=== PATIENT | female | born 1990 ===

== ENCOUNTER 2017-06-28 13:48 | Emergency (ER) | payer SELFPAY ==
--- NOTE | 2017-06-28 13:53 | ER Report ---
History and Physical Time Seen By MD: 13:52 (CHICHO JEREZ MD) HPI/ROS CHIEF COMPLAINT: Nausea vomiting and diarrhea HISTORY OF PRESENT ILLNESS: Patient is a 27-year-old female with past medical history significant for bronchitis. Patient is had 3-4 days of watery diarrhea last episode was yesterday but she is also having dry heaves and vomiting. Patient also admits to sort of crampy epigastric abdominal pain. Any type of oral intake seems to initiate around of emesis. He shouldn't lives in [facility] and is a solid waste truck driver. Because the symptoms have been progressing for the past 3-4 days she presents to the emergency department for evaluation. Patient last diarrhea was yesterday she did take Imodium at that time. Patient denies any recent antibiotic use or travel out of the country. REVIEW OF SYSTEMS: Constitutional: No fever, no chills. Eyes: No discharge. ENT: No sore throat. Cardiovascular: No chest pain, no palpitations. Respiratory: No cough, no shortness of breath. Gastrointestinal: Abdominal cramping, nausea vomiting and diarrhea. Genitourinary: No hematuria. Musculoskeletal: No back pain. Skin: No rashes. Neurological: No headache. (CHICHO JEREZ MD) Allergies: Coded Allergies: No Known Drug Allergies (Unverified , 06/28/17) Home Meds Active Scripts Dicyclomine Hcl (DICYCLOMINE HCL) 20 Mg Tablet, 20 MG PO QID for diarrhea, #20 TAB 0 Refills Prov:CHICHO JEREZ MD 06/28/17 Ondansetron (ZOFRAN ODT) 4 Mg Tab.rapdis, 4 MG PO Q8H Y for NAUSEA, #20 TAB.EDISON 0 Refills Prov:CHICHO JEREZ MD 06/28/17 Reported Medications Albuterol Sulfate (PROVENTIL HFA) 6.7 Gm Inh, 1-2 PUFF INH 3-4XD, INH 06/28/17 Albuterol Sulfate 90 Mcg/Act (PROAIR HFA 90 MCG/ACT) 8.5 Gm Hfa.aer.ad, 1-2 PUFF IH 3-4XD, INHALER 06/28/17 Past Medical/Surgical History Bronchitis (CHICHO JEREZ MD) Constitutional Vital Sign - Last 24 Hours 3/06/28/17 06/28/17 06/28/17 13:48 13:54 13:58 14:00 Temp 97.9 Pulse ??? 89 Resp 14 B/P (MAP) 124/72 124/72 (89) 119/74 (89) Pulse Ox 92 06/28/17 06/28/17 06/28/17 06/28/17 14:03 14:18 14:30 14:33 Pulse 88 79 76 B/P (MAP) ???/??? (1665) Pulse Ox 94 95 93 06/28/17 06/28/17 06/28/17 06/28/17 14:48 15:03 15:18 15:23 Pulse 81 77 71 ??? Pulse Ox 94 94 93 06/28/17 06/28/17 06/28/17 06/28/17 15:30 15:38 15:50 15:53 Pulse 94 85 B/P (MAP) ???/??? (1665) 126/65 (85) Pulse Ox 94 91 06/28/17 06/28/17 06/28/17 06/28/17 16:00 16:08 16:18 16:23 Pulse ??? 76 B/P (MAP) ???/??? (1665) 103/57 (72) Pulse Ox 90 06/28/17 06/28/17 16:30 16:38 Pulse 72 B/P (MAP) 95/61 (72) Pulse Ox 93 Intake and Output 06/28/17 06/28/17 06/29/17 15:00 23:00 07:00 Intake Total 50 ml Balance 50 ml (LAURORA,BRITTANY V DO) Physical Exam General Appearance: The patient is alert, has no immediate need for airway protection and no signs of toxicity. Eyes: Pupils equal and round no pallor or injection. ENT, Mouth: Mucous membranes are moist. Respiratory: There are no retractions, lungs are clear to auscultation. Cardiovascular: Regular rate and rhythm. Gastrointestinal: Abdomen is soft and non tender, no masses, bowel sounds normal. Neurological: Awake and alert Skin: Warm and dry, no rashes. Musculoskeletal: Neck is supple non tender. Extremities are nontender, nonswollen and have full range of motion. (CHICHO JEREZ MD) Medical Decision Making Data Points Result Diagram: 06/28/17 1406 06/28/17 1406 Laboratory Hematology Test 06/28/17 13:55 06/28/17 14:06 Urine Color Yellow Urine Clarity Clear Urine pH 8.0 pH (4.8-9.5) Urine Specific [place] 1.017 Urine Protein Negative mg/dL (NEGATIVE) Urine Glucose (UA) Negative mg/dL (NEGATIVE) Urine Ketones Negative mg/dL (NEGATIVE) Urine Blood Small (NEGATIVE) Urine Nitrite Negative (NEGATIVE) Urine Bilirubin Negative (NEGATIVE) Urine Urobilinogen Negative mg/dL (0.2-1.9) Urine Leukocyte Esterase Negative (NEGATIVE) Urine RBC <1 /HPF (0-2/HPF) Urine WBC 2 /HPF (0-5/HPF) Urine Squamous Epithelial Cells Many /LPF (</=FEW) Urine Bacteria Negative /HPF (NONE-FEW) Urine Mucus Few /HPF (NONE-FEW) Red Blood Count 4.95 M/uL (4.17-5.56) Mean Corpuscular Volume 82.9 fL (80.0-96.0) Mean Corpuscular Hemoglobin 28.4 pg (26.0-33.0) Mean Corpuscular Hemoglobin Concent 34.3 g/dL (32.0-36.0) Red Cell Distribution Width 14.4 % (11.5-14.5) Mean Platelet Volume 7.9 fL (7.2-11.1) Neutrophils (%) (Auto) 59.2 % (39.4-72.5) Lymphocytes (%) (Auto) 28.2 % (17.6-49.6) Monocytes (%) (Auto) 8.0 % (4.1-12.4) Eosinophils (%) (Auto) 3.5 % (0.4-6.7) Basophils (%) (Auto) 1.1 % (0.3-1.4) Nucleated RBC Relative Count (auto) 0.0 /100WBC Neutrophils # (Auto) 4.8 K/uL (2.0-7.4) Lymphocytes # (Auto) 2.3 K/uL (1.3-3.6) Monocytes # (Auto) 0.6 K/uL (0.3-1.0) Eosinophils # (Auto) 0.3 K/uL (0.0-0.5) Basophils # (Auto) 0.1 K/uL (0.0-0.1) Nucleated RBC Absolute Count (auto) 0.00 K/uL Peripheral Blood Smear No Y/N Urine HCG, Qualitative Negative (NEGATIVE) Sodium Level 140 mmol/L (137-145) Potassium Level 3.7 mmol/L (3.5-5.0) Chloride Level 103 mmol/L (98-107) Carbon Dioxide Level 25 mmol/L (22-31) Blood Urea Nitrogen 7 mg/dl (7-18) Creatinine 0.80 mg/dl (0.52-1.04) Glomerular Filtration Rate Calc > 60.0 Random Glucose 93 mg/dl (75-110) Calcium Level 9.2 mg/dl (8.4-10.2) Total Bilirubin 0.4 mg/dl (0.2-1.3) Aspartate Amino Transf (AST/SGOT) 29 U/L (0-35) Alanine Aminotransferase (ALT/SGPT) 47 U/L (0-56) Alkaline Phosphatase 85 U/L (0-126) Troponin I < 0.012 ng/ml Total Protein 7.4 gm/dl (6.3-8.2) Albumin 3.8 g/dl (3.5-5.0) Amylase Level 75 U/L (0-110) Lipase 116 U/L (23-300) Chemistry Test 06/28/17 13:55 06/28/17 14:06 Urine Color Yellow Urine Clarity Clear Urine pH 8.0 pH (4.8-9.5) Urine Specific [place] 1.017 Urine Protein Negative mg/dL (NEGATIVE) Urine Glucose (UA) Negative mg/dL (NEGATIVE) Urine Ketones Negative mg/dL (NEGATIVE) Urine Blood Small (NEGATIVE) Urine Nitrite Negative (NEGATIVE) Urine Bilirubin Negative (NEGATIVE) Urine Urobilinogen Negative mg/dL (0.2-1.9) Urine Leukocyte Esterase Negative (NEGATIVE) Urine RBC <1 /HPF (0-2/HPF) Urine WBC 2 /HPF (0-5/HPF) Urine Squamous Epithelial Cells Many /LPF (</=FEW) Urine Bacteria Negative /HPF (NONE-FEW) Urine Mucus Few /HPF (NONE-FEW) White Blood Count 8.1 k/uL (4.5-11.0) Red Blood Count 4.95 M/uL (4.17-5.56) Hemoglobin 14.1 g/dL (12.0-16.0) Hematocrit 41.1 % (34.0-47.0) Mean Corpuscular Volume 82.9 fL (80.0-96.0) Mean Corpuscular Hemoglobin 28.4 pg (26.0-33.0) Mean Corpuscular Hemoglobin Concent 34.3 g/dL (32.0-36.0) Red Cell Distribution Width 14.4 % (11.5-14.5) Platelet Count 272 K/uL (150-450) Mean Platelet Volume 7.9 fL (7.2-11.1) Neutrophils (%) (Auto) 59.2 % (39.4-72.5) Lymphocytes (%) (Auto) 28.2 % (17.6-49.6) Monocytes (%) (Auto) 8.0 % (4.1-12.4) Eosinophils (%) (Auto) 3.5 % (0.4-6.7) Basophils (%) (Auto) 1.1 % (0.3-1.4) Nucleated RBC Relative Count (auto) 0.0 /100WBC Neutrophils # (Auto) 4.8 K/uL (2.0-7.4) Lymphocytes # (Auto) 2.3 K/uL (1.3-3.6) Monocytes # (Auto) 0.6 K/uL (0.3-1.0) Eosinophils # (Auto) 0.3 K/uL (0.0-0.5) Basophils # (Auto) 0.1 K/uL (0.0-0.1) Nucleated RBC Absolute Count (auto) 0.00 K/uL Peripheral Blood Smear No Y/N Urine HCG, Qualitative Negative (NEGATIVE) Glomerular Filtration Rate Calc > 60.0 Calcium Level 9.2 mg/dl (8.4-10.2) Total Bilirubin 0.4 mg/dl (0.2-1.3) Aspartate Amino Transf (AST/SGOT) 29 U/L (0-35) Alanine Aminotransferase (ALT/SGPT) 47 U/L (0-56) Alkaline Phosphatase 85 U/L (0-126) Troponin I < 0.012 ng/ml Total Protein 7.4 gm/dl (6.3-8.2) Albumin 3.8 g/dl (3.5-5.0) Amylase Level 75 U/L (0-110) Lipase 116 U/L (23-300) Urinalysis Test 06/28/17 13:55 06/28/17 14:06 Urine Color Yellow Urine Clarity Clear Urine pH 8.0 pH (4.8-9.5) Urine Specific [place] 1.017 Urine Protein Negative mg/dL (NEGATIVE) Urine Glucose (UA) Negative mg/dL (NEGATIVE) Urine Ketones Negative mg/dL (NEGATIVE) Urine Blood Small (NEGATIVE) Urine Nitrite Negative (NEGATIVE) Urine Bilirubin Negative (NEGATIVE) Urine Urobilinogen Negative mg/dL (0.2-1.9) Urine Leukocyte Esterase Negative (NEGATIVE) Urine RBC <1 /HPF (0-2/HPF) Urine WBC 2 /HPF (0-5/HPF) Urine Squamous Epithelial Cells Many /LPF (</=FEW) Urine Bacteria Negative /HPF (NONE-FEW) Urine Mucus Few /HPF (NONE-FEW) Urine HCG, Qualitative Negative (NEGATIVE) (BRITTANY VENTURA DO) EKG/Imaging Imaging napd; no obstruction noted (BRITTANY VENTURA DO) ED Course/Re-evaluation Clinical Indication for ER IV: Hydration, IV Access ED Course 06/28/2017 2:12:30 pm plan at this time will be to place an IV for IV hydration we'll give IV Zofran. Patient has not had a bowel movement since yesterday so we will hold off on antidiarrheal medication at this time. Abdominal exam is nonfocal I do not believe imaging at this point is required. We will treat symptoms with Zofran and fluids I anticipate the patient will be able to be discharged home. (CHICHO JEREZ MD) Clinical Indication for ER IV: Hydration, IV Access ED Course 06/28/2017 3:16:56 pm Pt signed out to me to be reevaluated after her fluids are completed. Spoke with pt. she is feeling 'Much better". Pt would like to go home. Pt has had no vomiting or diarrhea. will d/c. scripts were sent in by Dr. Jerez. 06/28/2017 3:48:25 pm Pt about to go and when she got up started with vomiting again. Will remedicate and give fluids. 06/28/2017 4:37:13 pm Pt refused reglan, stating she is no longer nauseated since second dose of zofran 06/28/2017 4:53:56 pm PT feeling better after bentyl/zofran and second liter of nss. PT watching video on her phone. Feels comfortable to d/c Decision to Disposition Date: Jun 28, 2017 Decision to Disposition Time: 15:17 (BRITTANY VENTURA DO) Depart Departure Latest Vital Signs Vital Signs Date Time Temp Pulse Resp B/P (MAP) Pulse Ox O2 Delivery O2 Flow Rate FiO2 06/28/17 16:38 72 93 06/28/17 16:30 95/61 (72) 06/28/17 13:54 97.9 14 (BRITTANY VENTURA DO) Impression: Primary Impression: Vomiting Additional Impression: Diarrhea Condition: Improved Disposition: HOME OR SELF-CARE New Scripts Dicyclomine Hcl (DICYCLOMINE HCL) 20 Mg Tablet 20 MG PO QID for diarrhea, #20 TAB 0 Refills Prov: CHICHO JEREZ MD 06/28/17 Ondansetron (ZOFRAN ODT) 4 Mg Tab.rapdis 4 MG PO Q8H Y for NAUSEA, #20 TAB.EDISON 0 Refills Prov: CHICHO JEREZ MD 06/28/17 Patient Instructions: Acute Diarrhea (GEN) Additional Instructions: Zofran one every 6 hours as needed for nausea or vomiting. Bentyl one every 6 hours as needed for abdominal cramping. Follow up with your doctor when you get home. Problem Qualifiers Primary Impression: Vomiting Vomiting type: unspecified Vomiting Intractability: unspecified Nausea presence: with nausea Qualified Codes: R11.2 - Nausea with vomiting, unspecified Additional Impression: Diarrhea Diarrhea type: unspecified type Qualified Codes: R19.7 - Diarrhea, unspecified CHICHO JEREZ MD Jun 28, 2017 13:53 BRITTANY VENTURA DO Jun 28, 2017 15:18
[2017-06-28] MEDS ORDERED: ALBU8.5H IH (14:01)
[2017-06-28] MEDS ORDERED: ALB6.7R INH (14:01)
[2017-06-28] MEDS ORDERED: ONDANSETRON 4 MG/2 ML VIAL IVP ONE ×2 (14:10→15:45)
[2017-06-28] MEDS ORDERED: FAMOTIDINE(*) 20MG/50ML PREMIX 50 ML IVPB ONE (14:10)
[2017-06-28] MEDS ORDERED: NS(*) 0.9% 1000 ML BAG 1,000 ML IV ONE ×2 (14:10→15:45)
[2017-06-28 14:21] LABS: PLATELET COUNT, AUTOMATED 272 K/uL (150-450)
[2017-06-28] MEDS ORDERED: DICY20TA70 PO (14:26)
[2017-06-28] MEDS ORDERED: ONDA4TAB PO (14:26)
[2017-06-28] MEDS ORDERED: ONDANSETRON 4 MG/2 ML VIAL ONE (15:46)
[2017-06-28] MEDS ORDERED: METOCLOPRAMIDE 10 MG/2 ML SDV IVP ONE (16:00)
[2017-06-28 16:30] VITALS: BP 95/61
[2017-06-28] MEDS ORDERED: DICYCLOMINE HCL 10 MG CAP PO ONE (16:35)
--- NOTE | 2017-06-28 16:35 | EKG ---
FACILITY: [facility] PATIENT NAME: RAJESH CHERRY : [id number] MR: [id number] V: [id number] EXAM DATE: ORDERING PHYSICIAN: BRITTANY VENTURA TECHNOLOGIST: CINTHIA Akers Reason : CHEST PAIN Blood Pressure : / mmHG Vent. Rate : 080 BPM Atrial Rate : 080 BPM P-R Int : 162 ms QRS Dur : 088 ms QT Int : 416 ms P-R-T Axes : 030 044 032 degrees QTc Int : 479 ms Normal sinus rhythm Normal ECG No previous ECGs available Confirmed by EMELIA CULLEN ([id number]) on 06/29/2017 6:35:34 AM Referred By: AUDREY Confirmed By:EMELIA CULLEN
--- NOTE | 2017-06-28 16:49 | RADIOLOGY IMAGING REPORT ---
FACILITY: [facility] [place] PATIENT NAME: May Sharif : 1990 MR: [id number] V: [id number] EXAM DATE: ORDERING PHYSICIAN: BRITTANY VENTURA TECHNOLOGIST: Location: [facility] Patient: May Sharif : 1990 Visit/Account:[id number] Date of Sevice: 06/28/2017 Abdominal series with single view of the chest: 06/28/2017 3:50 PM HISTORY: Epigastric pain and vomiting. COMPARISON:none. FINDINGS: Some stool is present within the colon. Bowel gas pattern is nonobstructed and nondilated. Abdominal soft tissues are grossly normal without suspicious lucencies or abnormal calcifications. N o acute bony abnormality. Lungs show no consolidation, pleural effusion or pneumothorax. No discrete nodule. Cardiomediastinal silhouette and pulmonary vessels within normal limits. Upper abdomen is unremarkable. No acute bony abnormality. IMPRESSION: 1. Unremarkable exam of the abdomen. 2. No acute cardiopulmonary process. Report Dictated By: John Uribe at 06/28/2017 4:44 PM Report E-Signed By: John Uribe at 06/28/2017 4:46 PM WSN:[id number]
== END 2017-06-28 17:03 | disposition home or self-care (01) ==
LOC: ER 13:56
DX: R11.2 Nausea with vomiting, unspecified (principal); R19.7 Diarrhea, unspecified
CPT/HCPCS: 74022; 81001; 81025; 82150; 83690; 84484; 85025; 93005; 96361; 96374; 96375; 96376; 99284; J2405; J3490; J7030; 82040; 82247; 82310; 82374; 82435; 82565; 82947; 84075; 84132; 84155; 84295; 84450; 84460; 84520